=== PATIENT | female | born 1995 | race African-American/Black ===

== ENCOUNTER 2018-10-04 16:34 | Inpatient (IN) | payer SELFPAY ==
[~2018-10-04] VITALS: Ht 182.9 cm; Wt 75.9 kg
[2018-10-04] MEDS ORDERED: ONDANSETRON HCL INJ 2MG/ML 2ML 2 MG/ML VIAL IV STA (16:45)
[2018-10-04] MEDS ORDERED: SODIUM CHLORIDE 0.9% 1000ML 1,000 ML IV STA ×2 (16:45→18:44)
[2018-10-04] MEDS ORDERED: ASPIRIN 81 MG CHEW TAB PO ONE ×2 (17:00→19:30)
[2018-10-04 17:18] LABS: BASOPHILS % 0.4 % (0.0-1.0); EOSINOPHILS # (AUTO) 0.3 (0.0-0.4); EOSINOPHILS % 4.1 % (0.0-6.0); HEMATOCRIT 32.3 % (34.2-44.1); HEMOGLOBIN 10.7 g/dL (12.0-16.0); LYMPHOCYTES # (AUTO) 0.9 (1.0-3.2); LYMPHOCYTES % 11.5 % (18.0-39.1); MEAN CORPUSCULAR HEMOGLOBIN 22.4 pg (28-32); MEAN CORPUSCULAR HGB CONC 33.1 g/dL (31-35); MEAN CORPUSCULAR VOLUME 67.6 fL (81-99); MONOCYTES # (AUTO) 0.5 (0.2-0.8); MONOCYTES % 6.9 % (4.4-11.3); NEUTROPHILS # (AUTO) 5.7 (2.1-6.9); NEUTROPHILS % 76.7 % (38.7-80.0); PLATELET COUNT 342 x10e3/uL (140-360); RED BLOOD COUNT 4.78 x10e6/uL (3.6-5.1); RED CELL DISTRIBUTION WIDTH 16.7 % (11.7-14.4)
[2018-10-04 17:39] LABS: ALANINE AMINOTRANSFERASE 76 IU/L (0-55); ALBUMIN 3.8 g/dL (3.5-5.0); ALBUMIN/GLOBULIN RATIO 1.2 (0.8-2.0); ALKALINE PHOSPHATASE 63 IU/L (40-150); ANION GAP 11.7 mmol/L (8-16); BLOOD UREA NITROGEN 9 mg/dL (7-26); BUN/CREATININE RATIO 10 (6-25); CALCIUM 9.6 mg/dL (8.4-10.2); CARBON DIOXIDE 25 mmol/L (22-29); CHLORIDE 102 mmol/L (98-107); CREATININE, SERUM 0.87 mg/dL (0.57-1.11); EST GLOMERULAR FILTRATION RATE > 60 ML/MIN (60-); GLUCOSE 71 mg/dL (74-118); POTASSIUM 3.7 mmol/L (3.5-5.1); SODIUM 135 mmol/L (136-145)
[2018-10-04 18:07] LABS: CREATINE KINASE 21996 IU/L (29-168)
[2018-10-04 18:42] LABS: BILIRUBIN,URINE NEGATIVE (NEGATIVE); CLARITY,URINE SL CLOUDY (CLEAR); COLOR,URINE YELLOW (YELLOW); KETONES,URINE NEGATIVE (NEGATIVE); LEUKOCYTE ESTERASE ,URINE TRACE (NEGATIVE); NITRITE,URINE NEGATIVE (NEGATIVE); PROTEIN,URINE DIPSTICK NEGATIVE (NEGATIVE); URINE UROBILINOGEN 0.2 mg/dL (0.2 - 1)
[2018-10-04 18:44] LABS: BACTERIA,URINE MODERATE /HPF; EPITHELIAL CELLS,URINE FEW /LPF
[2018-10-04] MEDS ORDERED: ONDANSETRON HCL INJ 2MG/ML 2ML 2 MG/ML VIAL IV PRN (19:30)
[2018-10-04] MEDS: SODIUM CHLORIDE 0.9% 1000ML 1,000 ML IV SCH ×2 (21:06→21:29)
[2018-10-04 21:17] VITALS: BP 135/63
[2018-10-04] MEDS ORDERED: ACETAMINOPHEN 325 MG TAB PO PRN (21:30)
[2018-10-04 21:35] VITALS: BP 135/63
[2018-10-04 21:36] VITALS: BP 135/63
[2018-10-04 23:46] VITALS: BP 133/60
[2018-10-05] MEDS: SODIUM CHLORIDE 0.9% 1000ML 1,000 ML IV SCH ×4 (03:19→23:44)
[2018-10-05 03:22] LABS: CREATINE KINASE 13364 IU/L (29-168)
[2018-10-05 04:40] VITALS: BP 140/64
[2018-10-05 05:41] LABS: BASOPHILS % 0.4 % (0.0-1.0); EOSINOPHILS # (AUTO) 0.3 (0.0-0.4); EOSINOPHILS % 5.2 % (0.0-6.0); HEMATOCRIT 29.2 % (34.2-44.1); HEMOGLOBIN 9.5 g/dL (12.0-16.0); LYMPHOCYTES # (AUTO) 0.8 (1.0-3.2); LYMPHOCYTES % 16.4 % (18.0-39.1); MEAN CORPUSCULAR HEMOGLOBIN 22.2 pg (28-32); MEAN CORPUSCULAR HGB CONC 32.5 g/dL (31-35); MEAN CORPUSCULAR VOLUME 68.2 fL (81-99); MONOCYTES # (AUTO) 0.7 (0.2-0.8); NEUTROPHILS # (AUTO) 3.2 (2.1-6.9); NEUTROPHILS % 64.8 % (38.7-80.0); PLATELET COUNT 260 x10e3/uL (140-360); RED BLOOD COUNT 4.28 x10e6/uL (3.6-5.1); RED CELL DISTRIBUTION WIDTH 16.9 % (11.7-14.4)
[2018-10-05 06:20] LABS: ALANINE AMINOTRANSFERASE 54 IU/L (0-55); ALBUMIN/GLOBULIN RATIO 1.2 (0.8-2.0); ALKALINE PHOSPHATASE 58 IU/L (40-150); ANION GAP 10.9 mmol/L (8-16); BLOOD UREA NITROGEN 5 mg/dL (7-26); BUN/CREATININE RATIO 6 (6-25); CALCIUM 8.1 mg/dL (8.4-10.2); CARBON DIOXIDE 24 mmol/L (22-29); CHLORIDE 106 mmol/L (98-107); CREATININE, SERUM 0.82 mg/dL (0.57-1.11); EST GLOMERULAR FILTRATION RATE > 60 ML/MIN (60-); GLUCOSE 93 mg/dL (74-118); POTASSIUM 3.9 mmol/L (3.5-5.1); SODIUM 137 mmol/L (136-145)
--- NOTE | 2018-10-05 07:35 | NUR ---
Received patient this morning and a/ox3, VSS and denies any pains. Call light within reach and will monitor.
[2018-10-05] MEDS ORDERED: ALBUTEROL/IPRATROPIUM 3 ML NEB NEB PRN (08:30)
--- NOTE | 2018-10-05 08:53 | NUR ---
Rounds by attending [facility] and orders in place for CT and carotid dopler, will monitor.
[2018-10-05 09:56] VITALS: BP 119/55
--- NOTE | 2018-10-05 10:08 | Diagnostic Imaging Report ---
CT BRAIN WO HISTORY: Syncope, headache COMPARISON: None. TECHNIQUE: Noncontrast axial scans were obtained from skull base to the vertex. Coronal and sagittal reconstructions obtained from the axial data. One or more of the following dose reduction techniques were used: Automated exposure control, adjustment of the mA and/or kV according to patient size, and/or utilization of iterative reconstruction technique. DISCUSSION: Scalp/Skull: Unremarkable. Brain sulci: Appropriate for patient's age. Ventricles: Normal in size and configuration. No hydrocephalus. Extra-axial spaces: No masses or fluid collections. Parenchyma: No abnormal densities. No mass, hemorrhage, or large vascular territory acute infarct. Dural sinuses: No abnormal densities. Sellar/Suprasellar region: Intact. Skull base: Intact. Incidental findings: None. IMPRESSION: No intracranial abnormalities. Signed by: Dr. Jose Angel Corbett M.D. on 10/05/2018 10:05 AM
[2018-10-05 10:20] LABS: CREATINE KINASE 10852 IU/L (29-168)
[2018-10-05 11:26] VITALS: BP 117/63
[2018-10-05 14:14] LABS: CREATINE KINASE 9490 IU/L (29-168)
[2018-10-05 15:56] VITALS: BP 118/55
[2018-10-05 20:00] VITALS: BP 137/85
[2018-10-06] VITALS: BP 133/82
[2018-10-06] MEDS: SODIUM CHLORIDE 0.9% 1000ML 1,000 ML IV SCH ×3 (01:20→11:39)
[2018-10-06 03:37] LABS: BASOPHILS % 0.7 % (0.0-1.0); EOSINOPHILS # (AUTO) 0.7 (0.0-0.4); EOSINOPHILS % 12.3 % (0.0-6.0); HEMATOCRIT 28.8 % (34.2-44.1); HEMOGLOBIN 9.4 g/dL (12.0-16.0); LYMPHOCYTES # (AUTO) 1.6 (1.0-3.2); LYMPHOCYTES % 28.6 % (18.0-39.1); MEAN CORPUSCULAR HEMOGLOBIN 22.3 pg (28-32); MEAN CORPUSCULAR HGB CONC 32.6 g/dL (31-35); MEAN CORPUSCULAR VOLUME 68.4 fL (81-99); MONOCYTES # (AUTO) 0.6 (0.2-0.8); MONOCYTES % 11.1 % (4.4-11.3); NEUTROPHILS # (AUTO) 2.7 (2.1-6.9); NEUTROPHILS % 47.1 % (38.7-80.0); PLATELET COUNT 267 x10e3/uL (140-360); RED BLOOD COUNT 4.21 x10e6/uL (3.6-5.1); RED CELL DISTRIBUTION WIDTH 16.8 % (11.7-14.4)
[2018-10-06 04:00] VITALS: BP 137/75
[2018-10-06 04:12] LABS: ANION GAP 11.4 mmol/L (8-16); BLOOD UREA NITROGEN 5 mg/dL (7-26); BUN/CREATININE RATIO 7 (6-25); CALCIUM 8.6 mg/dL (8.4-10.2); CARBON DIOXIDE 23 mmol/L (22-29); CHLORIDE 107 mmol/L (98-107); CREATININE, SERUM 0.71 mg/dL (0.57-1.11); EST GLOMERULAR FILTRATION RATE > 60 ML/MIN (60-); GLUCOSE 85 mg/dL (74-118); POTASSIUM 3.4 mmol/L (3.5-5.1); SODIUM 138 mmol/L (136-145)
[2018-10-06 04:18] LABS: CREATINE KINASE 5746 IU/L (29-168)
[2018-10-06] MEDS ORDERED: POTASSIUM CHLORIDE 20 MEQ TAB CR PO STA (05:53)
[2018-10-06 07:29] VITALS: BP 130/58
[2018-10-06 08:44] VITALS: BP 130/58
--- NOTE | 2018-10-06 08:50 | NUR ---
GAVE PACKET OF INFORMATION WITH [facility] FOR ASSISTANCE WITH LOW TO NO INCOME TO PATIENT. RESOURCES THAT PATIENT MAY BE ABLE TO FOLLOW UP UPON DISCHARGE. PT EDUCATED ON EACH RESOURCE AND UNDERSTANDING HOW TO FOLLOW UP TO SEE IF QUALIFIED FOR EACH RESOURCE.
[2018-10-06] MEDS ORDERED: MORPHINE SULFATE INJ 4 MG/ML INJ 1ML ONE (10:47)
[2018-10-06 11:35] VITALS: BP 114/54
[2018-10-06 15:24] VITALS: BP 131/58
--- NOTE | 2018-10-06 15:39 | NUR ---
CK levels reported to MACHINE ACCOUNTANT, Ruthie and ok to discharge patient. Discharge instructions provided to patient and to f/u with primary care physician. IV line removed with cath tip in place, dressing applied.
--- NOTE | 2018-10-07 06:01 | Discharge Summary ---
ADMISSION DIAGNOSES: Near syncope, rhabdo, history of asthma. DISCHARGE DIAGNOSES: Near syncope, rhabdo, history of asthma, rule out cerebrovascular accident, rule out transient ischemic attack. HISTORY: Asthma. SURGICAL HISTORY: Right pinky fracture repair. FAMILY HISTORY: The patient's great uncle and great aunt have a history of diabetes and her grandma has a history of cancer. SOCIAL HISTORY: The patient admits to occasional alcohol and tobacco use. HOSPITAL COURSE: A 23-year-old female, complains of intermittent dizziness that quickly resolved for a few months. Yesterday around 4 p.m., she got it again and it lasted for about 20 minutes, so she came to the ER. Earlier in the day, she had diarrhea, then drove in her hot car for [address] to work before the dizziness started[place] [address]. She was started on IV fluids. CT of the brain was negative. Carotid Doppler was negative. CK continued to decrease with IV fluids. The patient is asymptomatic. Urine culture was negative. She will be discharged home and agrees to continue to increase p.o. fluids. Vital signs stable. The patient is afebrile. She will follow up with primary care in 1 to 2 weeks. Dictated by Ruthie Obrien NP MD BEL Caceres/CRISTOFER /[id number]
== END 2018-10-06 15:40 | disposition home or self-care (01) | DRG 558 ==
LOC: ER 16:44 → ERHOLD 19:22 → MED/SURG 21:04 → OBSVTOIN 10-05 08:45
PROVIDERS: ADMIT Internal Medicine; ATTEND Internal Medicine
DX: M62.82 Rhabdomyolysis (principal); G45.9 Transient cerebral ischemic attack, unspecified; J45.909 Unspecified asthma, uncomplicated; Z72.89 Other problems related to lifestyle; Z72.0 Tobacco use
CPT/HCPCS: 36415; 70450; 80048; 80053; 81001; 81025; 82550; 82553; 82948; 84484; 84702; 85025; 87086; 93005; 93880; 99284; G0378; J2270; J2405; J7030